=== PATIENT | female | born 2000 | race Caucasian/White ===

== ENCOUNTER 2020-12-03 19:14 | Outpatient (REF) | payer MEDICAID, SELFPAY ==
[2020-12-03 14:29] LABS: Calculated LDL 75 mg/dL (<100); Cholesterol 141 mg/dL (<200); HDL Cholesterol 49 mg/dL (40-60); Triglyceride 88 mg/dL (<150)
[2020-12-03 14:52] LABS: Hemoglobin A1C 5.2 % (<5.7)
[2020-12-04 20:46] LABS: Chlamydia Result Negative (Negative); GC Result Negative (Negative)
== END 2020-12-03 19:15 | disposition home or self-care (01) ==
LOC: NCHCN 19:14
PROVIDERS: PCP Registered Nurse; Visit Provider Registered Nurse
DX: Z13.1 Encounter for screening for diabetes mellitus (principal); Z13.220 Encounter for screening for lipoid disorders; E66.9 Obesity, unspecified; Z11.3 Encounter for screening for infections with a predominantly sexual mode of transmission
CPT/HCPCS: 80061; 87491; 87591; 83036

== ENCOUNTER 2021-05-26 16:59 | Outpatient (REF) | payer MEDICAID, SELFPAY | END 2021-05-26 17:00 | disposition home or self-care (01) | LOC: LBN 16:59 | PROVIDERS: Visit Provider Physician Assistant Medical | DX: R32 Unspecified urinary incontinence (principal) | CPT/HCPCS: 87086 ==

== ENCOUNTER 2021-06-25 15:09 | Outpatient (REF) | payer MEDICAID, SELFPAY ==
[2021-06-28 15:36] LABS: Chlamydia Result Negative (Negative); GC Result Negative (Negative)
== END 2021-06-25 15:10 | disposition home or self-care (01) ==
LOC: NCHCN 15:09
PROVIDERS: Visit Provider Registered Nurse
DX: R32 Unspecified urinary incontinence (principal)
CPT/HCPCS: 87491; 87591

== ENCOUNTER 2022-01-07 15:46 | Outpatient (REF) | payer MEDICAID, SELFPAY ==
--- NOTE | 2022-01-07 14:50 | PAPFT_PTH ---
PATIENT: Trent Bowen LOC: LOCATED WITHIN [facility]#:[id number] AGE/SX: 21/F ROOM: RE01/07/[address]: Sybil Byrne : 2000 BED: DIS: 01/07/2022 SPEC #: [id number] RECD: 01/10/22 13:06 STATUS: VICENTA PRIETO #: [id number] JAEL: 01/07/22 14:[address]: Sybil Byrne DEPT: [facility] Cytology RECD BY: Nancy Sánchez ENTERED: 01/10/22 13:06 SP TYPE: PAPFT OT DR: Unknown,Unknown Tissues: 1 - CX/ENDOCX FOR PAP SMEARS Procedures: PAP THIN PREP/[facility] Screening Comments: [id number]
[2022-01-07 21:08] LABS: HCT 44.3 % (36.0-46.0); HGB 13.7 g/dL (11.2-15.7); MCH 26.1 pg (27.0-33.0); MCHC 30.9 % (32.0-36.0); MCV 84.4 fL (80-95); Platelet Count 296 10^3/uL (130-400); RBC 5.25 10^6/uL (3.93-5.22); RDW-SD 42.9 fL; WBC 7.65 10^3/uL (4.4-10.8)
[2022-01-07 21:38] LABS: Hemoglobin A1C 5.3 % (<5.7)
[2022-01-07 21:49] LABS: ALT 34 U/L (14-59); AST 21 U/L (15-37); Albumin 3.3 g/dL (3.4-5.0); Alkaline Phosphatase 67 U/L (46-116); Anion Gap 8.2 mmol/L (3-11); BUN 7 mg/dL (7-18); Bilirubin, Total 0.3 mg/dL (0.2-1.0); CO2 26.8 mmol/L (21.0-32.0); CREATININE 0.7 mg/dL (0.55-1.02); Calcium 9.3 mg/dL (8.5-10.1); Calculated LDL 58 mg/dL (<100); Chloride 111 mmol/L (98-107); Cholesterol 132 mg/dL (<200); Glucose 85 mg/dL (74-106); HDL Cholesterol 43 mg/dL (40-60); Potassium 4.4 mmol/L (3.5-5.1); Sodium 146 mmol/L (136-145); TSH 1.05 uIU/mL (0.36-3.74); Total Protein 6.6 g/dL (6.4-8.2); Triglyceride 159 mg/dL (<150)
== END 2022-01-07 15:47 | disposition home or self-care (01) ==
LOC: NCHCN 15:46
PROVIDERS: Visit Provider Registered Nurse
DX: Z00.00 Encounter for general adult medical examination without abnormal findings (principal); Z12.4 Encounter for screening for malignant neoplasm of cervix; E66.9 Obesity, unspecified; F32.A Depression, unspecified; Z91.52 Personal history of nonsuicidal self-harm
CPT/HCPCS: 80053; 80061; 85027; 88142; 83036; 84443

== ENCOUNTER 2023-01-11 15:45 | Outpatient (REF) | payer MEDICAID, SELFPAY ==
[2023-01-11 21:07] LABS: HCT 42.3 % (36.0-46.0); HGB 13.3 g/dL (11.2-15.7); MCH 25.9 pg (27.0-33.0); MCHC 31.4 % (32.0-36.0); MCV 82 fL (80-95); MPV 9.9 fL (8.0-11.0); Platelet Count 344 10^3/uL (130-400); RBC 5.14 10^6/uL (3.93-5.22); RDW 14.8 % (11.7-14.6); RDW-SD 44.2 fL; WBC 8.53 10^3/uL (4.4-10.8)
[2023-01-11 21:29] LABS: ALT 51 U/L (14-59); AST 36 U/L (15-37); Albumin 2.9 g/dL (3.4-5.0); Alkaline Phosphatase 73 U/L (46-116); Anion Gap 7.4 mmol/L (3-11); BUN 16 mg/dL (7-18); Bilirubin, Total 0.1 mg/dL (0.2-1.0); CO2 27.6 mmol/L (21.0-32.0); CREATININE 1.1 mg/dL (0.55-1.02); Calcium 9.1 mg/dL (8.5-10.1); Calculated LDL 93 mg/dL (<100); Chloride 114 mmol/L (98-107); Cholesterol 159 mg/dL (<200); Estimated GFR 72.86 (mL/min/1.73m2); Glucose 87 mg/dL (74-106); HDL Cholesterol 50 mg/dL (40-60); Potassium 4.4 mmol/L (3.5-5.1); Sodium 149 mmol/L (136-145); TSH (W/Ref FT4) 2.05 uIU/mL (0.36-3.74); Triglyceride 84 mg/dL (<150)
[2023-01-11 21:30] LABS: Hemoglobin A1C 5.1 % (<5.7)
[2023-01-11 21:48] LABS: Vitamin D 25 Total 14.3 ng/mL (30-100)
== END 2023-01-11 15:46 | disposition home or self-care (01) ==
LOC: NCHCN 15:45
PROVIDERS: Visit Provider Registered Nurse
DX: R53.83 Other fatigue (principal); F99 Mental disorder, not otherwise specified; E66.8 Other obesity; Z13.1 Encounter for screening for diabetes mellitus; E55.9 Vitamin D deficiency, unspecified; R79.89 Other specified abnormal findings of blood chemistry
CPT/HCPCS: 80053; 80061; 82306; 85027; 83036; 84443

== ENCOUNTER 2023-01-30 17:48 | Outpatient (REF) | payer MEDICAID, SELFPAY ==
[2023-01-30 21:32] LABS: Anion Gap 7.4 mmol/L (3-11); BUN 16 mg/dL (7-18); CO2 26.6 mmol/L (21.0-32.0); Calcium 9.5 mg/dL (8.5-10.1); Chloride 107 mmol/L (98-107); Estimated GFR 81.69 (mL/min/1.73m2); Glucose 84 mg/dL (74-106); Potassium 4.4 mmol/L (3.5-5.1); Sodium 141 mmol/L (136-145)
== END 2023-01-30 17:49 | disposition home or self-care (01) ==
LOC: NCHCN 17:48
PROVIDERS: Visit Provider Registered Nurse
DX: E87.0 Hyperosmolality and hypernatremia (principal)
CPT/HCPCS: 80048

== ENCOUNTER 2024-11-28 17:00 | Outpatient (REF) | payer MEDICAID, SELFPAY ==
--- NOTE | 2024-11-28 15:31 | PAPFT_PTH ---
PATIENT: Trent Bowen LOC: [facility] U#:[id number] AGE/SX: 24/F ROOM: RE11/28/[address]: Daniela Byrd : 2000 BED: DIS: 11/28/2024 SPEC #: [id number] RECD: 11/29/24 17:09 STATUS: VICENTA RESoraida #: [id number] JAEL: 11/28/24 15:[address]: Daniela Byrd DEPT: [facility] Cytology RECD BY: Nancy Sánchez ENTERED: 11/29/24 17:09 SP TYPE: PAPFT OT DR: Unknown,Unknown Tissues: 1 - CX/ENDOCX FOR PAP SMEARS Procedures: PAP THIN PREP/[facility] Screening HPV DNA PROBE Comments: [id number] (HPV 16 & 18/45)
== END 2024-11-28 17:01 | disposition home or self-care (01) ==
LOC: NCHCN 17:00
PROVIDERS: Visit Provider Family Medicine
DX: Z12.4 Encounter for screening for malignant neoplasm of cervix (principal); R87.619 Unspecified abnormal cytological findings in specimens from cervix uteri
CPT/HCPCS: 88142; 87624

== ENCOUNTER 2025-01-14 15:33 | Outpatient (REF) | payer MEDICAID, SELFPAY ==
[2025-01-14 18:29] LABS: HCT 45.2 % (36.0-46.0); HGB 13.5 g/dL (11.2-15.7); MCH 25.7 pg (27.0-33.0); MCHC 29.9 % (32.0-36.0); MCV 86 fL (80-95); MPV 9.9 fL (8.0-11.0); Platelet Count 333 10^3/uL (130-400); RBC 5.25 10^6/uL (3.93-5.22); RDW 16.7 % (11.7-14.6); WBC 11.04 10^3/uL (4.4-10.8)
[2025-01-14 18:46] LABS: Hemoglobin A1C 5.3 % (<5.7)
[2025-01-15 12:32] LABS: HCG Qual (Serum) Negative
[2025-01-15 12:50] LABS: FREE T4 0.86 ng/dL (0.76-1.46); TSH 3.16 uIU/mL (0.36-3.74)
[2025-01-15 17:40] LABS: T3,Free 3.8 pg/mL (2.8-5.3)
[2025-01-16 13:02] LABS: IgA 359 mg/dL (85-499); Interpretation (See Note); Tissue Transglutaminase IgA <4.0 CU (<20.0)
== END 2025-01-14 15:34 | disposition home or self-care (01) ==
LOC: LBN 15:33
PROVIDERS: Psychiatry & Neurology Psychiatry; Visit Provider Family Medicine
DX: Z79.899 Other long term (current) drug therapy (principal)
CPT/HCPCS: 82784; 83516; 85027; 83036; 84439; 84443; 84481; 84703

== ENCOUNTER 2025-03-27 11:47 | Outpatient (REF) | payer MEDICAID, SELFPAY ==
[2025-03-27 15:50] LABS: HCT 47.1 % (36.0-46.0); HGB 14.4 g/dL (11.2-15.7); MCH 25.7 pg (27.0-33.0); MCHC 30.6 % (32.0-36.0); MCV 84 fL (80-95); MPV 9.8 fL (8.0-11.0); Platelet Count 350 10^3/uL (130-400); RDW 15.9 % (11.7-14.6); RDW-SD 48.5 fL; WBC 8.81 10^3/uL (4.4-10.8)
[2025-03-27 16:54] LABS: ALT 90 U/L (14-59); AST 46 U/L (15-37); Albumin 2.9 g/dL (3.4-5.0); Alkaline Phosphatase 86 U/L (46-116); Anion Gap 5.9 mmol/L (3-11); BUN 14 mg/dL (7-18); Bilirubin, Total 0.2 mg/dL (0.2-1.0); CO2 29.1 mmol/L (21.0-32.0); CREATININE 0.6 mg/dL (0.55-1.02); Chloride 109 mmol/L (98-107); Estimated GFR 128.46 (mL/min/1.73m2); Glucose 93 mg/dL (74-106); Lipase 26 U/L (<78); Potassium 4.5 mmol/L (3.5-5.1); Sodium 144 mmol/L (136-145); TSH 3.07 uIU/mL (0.36-3.74); Total Protein 7.3 g/dL (6.4-8.2); Vitamin B12 514 pg/mL (193-986)
[2025-03-27 17:26] LABS: VALPROIC ACID < 3 ug/mL
== END 2025-03-27 11:48 | disposition home or self-care (01) ==
LOC: NCHCN 11:47
PROVIDERS: Psychiatry & Neurology Psychiatry; Visit Provider Family Medicine
DX: R10.9 Unspecified abdominal pain (principal); Z79.899 Other long term (current) drug therapy
CPT/HCPCS: 80053; 83690; 85027; 80164; 82607; 84443